=== PATIENT | male | born 1990 | race Caucasian/White ===

== ENCOUNTER 2018-09-24 16:19 | Emergency (ER) | payer OTHER, MEDICAID, SELFPAY ==
[2018-09-24 16:28] VITALS: BP 114/61; PULSE 69; RESP 16; TEMP 36.7; O2SAT 100; BMI 20.7
--- NOTE | 2018-09-24 16:28 | DI.RAD.S_ITS ---
PROCEDURE: XR WRIST RT MIN 3V INDICATIONS: pain TECHNIQUE: 4 views of the wrist were acquired. COMPARISON: None. FINDINGS: Bones: No fractures or dislocations. No suspicious bony lesions. Scaphoid view: No acute fracture of the scaphoid. Soft tissues: No suspicious soft tissue calcifications. IMPRESSION: No acute fracture or dislocation of the right wrist. Consider followup radiographs in 7-10 days if there is continued clinical concern. Dictated by: Narciso Vargas M.D. on 09/24/2018 at 18:24 Approved by: Narciso Vargas M.D. on 09/24/2018 at 18:25
--- NOTE | 2018-09-24 16:38 | ED.UPPEXIN ---
HPI - Extremity Injury (Upper) <MENA Allen - Last Filed: 09/24/18 21:07> General Chief Complaint: Extremity Injury, Upper Stated Complaint: R Wrist Pain Time Seen by Provider: 09/24/18 17:45 Source: patient Mode of arrival: ambulatory Limitations: no limitations History of Present Illness HPI narrative: 28-year-old healthy male that is an everyday smoker here for complaint of pain to his right wrist started yesterday. He denies any trauma to the right wrist. He reports increased pain with motion of the right wrist. 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 He denies any other concerns or injuries. He denies having pain like this before. complaint: injury to: right and wrist Related Data Allergies Allergy/AdvReac Type Severity Reaction Status Date / Time No Known Drug Allergies Allergy Verified 09/24/18 16:28 Review of Systems <MENA Allen - Last Filed: 09/24/18 21:07> Constitutional Denies chills, Denies fever(s), Denies lethargy and Denies weakness Eyes Denies change in vision, Denies eye discharge, Denies irritation and Denies loss of vision ENT Ears, Nose, Mouth, and Throat: Denies change in voice, Denies neck pain and Denies sore throat Cardiovascular Denies chest pain, Denies irregular heart rhythm, Denies lightheadedness, Denies palpitations, Denies dyspnea, Denies dyspnea on exertion and Denies orthopnea Respiratory Denies cough, Denies dyspnea, Denies dyspnea on exertion and Denies wheezing Gastrointestinal Gastrointestinal: Denies abdominal pain, Denies change in bowel habits, Denies diarrhea, Denies nausea and Denies vomiting Genitourinary Denies hematuria, Denies flank pain, Denies urinary incontinence and Denies urinary urgency Musculoskeletal Denies neck pain Comments: right wrist pain Integumentary/Breasts Denies pruritus, Denies erythema, Denies rash and Denies wounds Neurologic Denies confusion, Denies loss of vision and Denies weakness Psychiatric Denies anxiety, Denies confusion, Denies depression, Denies homicidal ideation and Denies suicidal ideation Endocrine Denies palpitations Hematologic/Lymphatic Denies easy bruising Allergic/Immunologic Denies wheezing Exam <MENA Allen - Last Filed: 09/24/18 21:07> Initial Vital Signs Initial Vital Signs: Vital Signs Temperature 98.0 F 09/24/18 16:28 Pulse Rate 69 09/24/18 16:28 Respiratory Rate 16 09/24/18 16:28 Blood Pressure 114/61 09/24/18 16:28 Pulse Oximetry 100 09/24/18 16:28 Const General: cooperative and well developed Nutritional Appearance: well nourished Orientation: alert, awake, oriented x3 and not confused HENMT Mouth: oral mucosae normal and moist mucous membranes Eyes Conjunctivae: conjunctivae normal Sclera: sclerae normal Pupils: PERRL EOM: EOM intact bilaterally Resp Effort & Inspection: normal respiratory effort, able to speak in complete sentences, no respiratory distress and no use of accessory muscles Auscultation: clear to auscultation bilaterally, no rales, no rhonchi and no wheezes Cardio Rate: regular rate Rhythm: regular rhythm Heart Sounds: no click, no gallops, no murmurs and no rubs Pulses: normal peripheral pulses Skin General: no rashes or lesions noted, No jaundice and No petechiae Neuro General: alert, oriented x3, gait normal and no focal motor deficits Speech: speech normal Extrem Other: tenderness on palpation to the right wrist Mostly the ulnar aspect. No snuffbox tenderness. phalens and tinel negative. distal sensation is intact. Distal range of motion is intact. Distal pulses are intact. <Samantha Escobedo DO - Last Filed: 09/24/18 22:24> Initial Vital Signs Initial Vital Signs: Vital Signs Temperature 98.0 F 09/24/18 16:28 Pulse Rate 69 09/24/18 16:28 Respiratory Rate 16 09/24/18 16:28 Blood Pressure 114/61 09/24/18 16:28 Pulse Oximetry 100 09/24/18 16:28 Course <MENA Allen - Last Filed: 09/24/18 21:07> Orders Ordered: ED Orders 09/24/18 16:28 XR wrist RT min 3V Stat Vital Signs - 8 hr 09/24/18 16:28 Temperature 98.0 F Pulse Rate 69 Respiratory Rate 16 Blood Pressure 114/61 Pulse Oximetry 100 <Samantha Escobedo DO - Last Filed: 09/24/18 22:24> Orders Ordered: ED Orders 09/24/18 16:28 XR wrist RT min 3V Stat Vital Signs - 8 hr 09/24/18 16:28 Temperature 98.0 F Pulse Rate 69 Respiratory Rate 16 Blood Pressure 114/61 Pulse Oximetry 100 MDM - Extremity Injury (Upper) <MENA Allen - Last Filed: 09/24/18 21:07> Imaging Data Right wrist : Radiologist's impression: [address] [address] XRay Report Signed Patient: Stevenson JuarezGAR#: [id number] : 1990Acct:[id number] Age/Sex: 28 / MDate of Service: 09/24/18 Loc: ED Accession Number: [id number] Procedure: XR wrist RT min 3V Ordering Provider: Drew Razo D.O. PROCEDURE: XR WRIST RT MIN 3V INDICATIONS: pain TECHNIQUE: 4 views of the wrist were acquired. COMPARISON: None. FINDINGS: Bones: No fractures or dislocations. No suspicious bony lesions. Scaphoid view: No acute fracture of the scaphoid. Soft tissues: No suspicious soft tissue calcifications. IMPRESSION: No acute fracture or dislocation of the right wrist. Consider followup radiographs in 7-10 days if there is continued clinical concern. Dictated by: Narciso Vargas M.D. on 09/24/2018 at 18:24 Approved by: Narciso Vargas M.D. on 09/24/2018 at 18:25 [facility] Narrative Medical decision making narrative: x-ray the right wrist is obtained however due to delay and radiological read patient left prior to discharge instructions. sinus symptoms presents as a sprain to right wrist. Would preferred to put patient in a splint for comfort and support and rest area. Follow up with primary care provider this week for re-evaluation. Tylenol Motrin as nee Discharge Plan Departure Patient Disposition: Left Against Medical Advice Clinical Impression: Left against medical advice Discharge Date/Time: 09/24/18 18:15 Interventions: ED Discharge Assessment Last Done: 09/24/18 18:24 Stand Alone Forms: Against Medical Advice <aSmantha Escobedo DO - Last Filed: 09/24/18 22:24> Cosign ED Attending Cosignature Attestation: I was immediately available in the department for consultation. This documentation has been reviewed and I agree with assessment and plan. Supervised by Samantha Escobedo DO
--- NOTE | 2018-09-24 18:40 | ED_ITS ---
HPI - Extremity Injury (Upper) <MENA Allen - Last Filed: 09/24/18 21:07> General Chief Complaint: Extremity Injury, Upper Stated Complaint: R Wrist Pain Time Seen by Provider: 09/24/18 17:45 Source: patient Mode of arrival: ambulatory Limitations: no limitations History of Present Illness HPI narrative: 28-year-old healthy male that is an everyday smoker here for complaint of pain to his right wrist started yesterday. He denies any trauma to the right wrist. He reports increased pain with motion of the right wrist. 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 He denies any other concerns or injuries. He denies having pain like this before. complaint: injury to: right and wrist Related Data Allergies Allergy/AdvReac Type Severity Reaction Status Date / Time No Known Drug Allergies Allergy Verified 09/24/18 16:28 Review of Systems <MENA Allen - Last Filed: 09/24/18 21:07> Constitutional Denies chills, Denies fever(s), Denies lethargy and Denies weakness Eyes Denies change in vision, Denies eye discharge, Denies irritation and Denies loss of vision ENT Ears, Nose, Mouth, and Throat: Denies change in voice, Denies neck pain and Denies sore throat Cardiovascular Denies chest pain, Denies irregular heart rhythm, Denies lightheadedness, Denies palpitations, Denies dyspnea, Denies dyspnea on exertion and Denies orthopnea Respiratory Denies cough, Denies dyspnea, Denies dyspnea on exertion and Denies wheezing Gastrointestinal Gastrointestinal: Denies abdominal pain, Denies change in bowel habits, Denies diarrhea, Denies nausea and Denies vomiting Genitourinary Denies hematuria, Denies flank pain, Denies urinary incontinence and Denies urinary urgency Musculoskeletal Denies neck pain Comments: right wrist pain Integumentary/Breasts Denies pruritus, Denies erythema, Denies rash and Denies wounds Neurologic Denies confusion, Denies loss of vision and Denies weakness Psychiatric Denies anxiety, Denies confusion, Denies depression, Denies homicidal ideation and Denies suicidal ideation Endocrine Denies palpitations Hematologic/Lymphatic Denies easy bruising Allergic/Immunologic Denies wheezing Exam <MENA Allen - Last Filed: 09/24/18 21:07> Initial Vital Signs Initial Vital Signs: Vital Signs Temperature 98.0 F 09/24/18 16:28 Pulse Rate 69 09/24/18 16:28 Respiratory Rate 16 09/24/18 16:28 Blood Pressure 114/61 09/24/18 16:28 Pulse Oximetry 100 09/24/18 16:28 Const General: cooperative and well developed Nutritional Appearance: well nourished Orientation: alert, awake, oriented x3 and not confused HENMT Mouth: oral mucosae normal and moist mucous membranes Eyes Conjunctivae: conjunctivae normal Sclera: sclerae normal Pupils: PERRL EOM: EOM intact bilaterally Resp Effort & Inspection: normal respiratory effort, able to speak in complete sentences, no respiratory distress and no use of accessory muscles Auscultation: clear to auscultation bilaterally, no rales, no rhonchi and no wheezes Cardio Rate: regular rate Rhythm: regular rhythm Heart Sounds: no click, no gallops, no murmurs and no rubs Pulses: normal peripheral pulses Skin General: no rashes or lesions noted, No jaundice and No petechiae Neuro General: alert, oriented x3, gait normal and no focal motor deficits Speech: speech normal Extrem Other: tenderness on palpation to the right wrist Mostly the ulnar aspect. No snuffbox tenderness. phalens and tinel negative. distal sensation is intact. Distal range of motion is intact. Distal pulses are intact. <Samantha Escobedo DO - Last Filed: 09/24/18 22:24> Initial Vital Signs Initial Vital Signs: Vital Signs Temperature 98.0 F 09/24/18 16:28 Pulse Rate 69 09/24/18 16:28 Respiratory Rate 16 09/24/18 16:28 Blood Pressure 114/61 09/24/18 16:28 Pulse Oximetry 100 09/24/18 16:28 Course <MENA Allen - Last Filed: 09/24/18 21:07> Orders Ordered: ED Orders 09/24/18 16:28 XR wrist RT min 3V Stat Vital Signs - 8 hr 09/24/18 16:28 Temperature 98.0 F Pulse Rate 69 Respiratory Rate 16 Blood Pressure 114/61 Pulse Oximetry 100 <Samantha Escobedo DO - Last Filed: 09/24/18 22:24> Orders Ordered: ED Orders 09/24/18 16:28 XR wrist RT min 3V Stat Vital Signs - 8 hr 09/24/18 16:28 Temperature 98.0 F Pulse Rate 69 Respiratory Rate 16 Blood Pressure 114/61 Pulse Oximetry 100 MDM - Extremity Injury (Upper) <MENA Allen - Last Filed: 09/24/18 21:07> Imaging Data Right wrist : Radiologist's impression: [address] [address] XRay Report Signed Patient: Stevenson JuarezMSR#: [id number] : 1990Acct:[id number] Age/Sex: 28 / MDate of Service: 09/24/18 Loc: ED Accession Number: [id number] Procedure: XR wrist RT min 3V Ordering Provider: Drew Razo D.O. PROCEDURE: XR WRIST RT MIN 3V INDICATIONS: pain TECHNIQUE: 4 views of the wrist were acquired. COMPARISON: None. FINDINGS: Bones: No fractures or dislocations. No suspicious bony lesions. Scaphoid view: No acute fracture of the scaphoid. Soft tissues: No suspicious soft tissue calcifications. IMPRESSION: No acute fracture or dislocation of the right wrist. Consider followup radiographs in 7-10 days if there is continued clinical concern. Dictated by: Narciso Vargas M.D. on 09/24/2018 at 18:24 Approved by: Narciso Vargas M.D. on 09/24/2018 at 18:25 [facility] Narrative Medical decision making narrative: x-ray the right wrist is obtained however due to delay and radiological read patient left prior to discharge instructions. sinus symptoms presents as a sprain to right wrist. Would preferred to put patient in a splint for comfort and support and rest area. Follow up with primary care provider this week for re-evaluation. Tylenol Motrin as nee Discharge Plan Departure Patient Disposition: Left Against Medical Advice Clinical Impression: Left against medical advice Discharge Date/Time: 09/24/18 18:15 Interventions: ED Discharge Assessment Last Done: 09/24/18 18:24 Stand Alone Forms: Against Medical Advice <Samantha Escobedo DO - Last Filed: 09/24/18 22:24> Cosign ED Attending Cosignature Attestation: I was immediately available in the department for consultation. This documentation has been reviewed and I agree with assessment and plan. Supervised by Samantha Escobedo DO
== END 2018-09-24 18:15 | disposition left against medical advice (07) ==
PROVIDERS: Emergency Provider Nurse Practitioner Family; PCP Emergency Medicine
DX: M25.531 Pain in right wrist (principal)
CPT/HCPCS: 73110; 99282